=== PATIENT | male | born 2000 | race Native Hawaiian/Other Pacific Islander ===

== ENCOUNTER 2020-08-30 09:12 | Day surgery (SDC) | payer OTHER ==
[~2020-08-30] VITALS: Ht 175.3 cm; Wt 81.6 kg
[2020-08-30] MEDS ORDERED: ceFAZolin 1GM/50ML 100 ML IV ONE (09:42)
[2020-08-30] MEDS ORDERED: MIDAZOLAM HCL 2MG/2ML 2ml VIAL (1mg/ml) ONE (10:38)
[2020-08-30] MEDS ORDERED: fentaNYL CITRATE 100 MCG/2 ML VL ONE (10:38)
[2020-08-30] MEDS ORDERED: ONDANSETRON HCL 4 MG/2 ML VIAL ONE (10:38)
[2020-08-30] MEDS ORDERED: MEPERIDINE HCL (25 MG/ML) 1ML VIAL ONE (10:38)
[2020-08-30] MEDS ORDERED: PROPOFOL 10 MG/ML 20 ML IV ONE (10:38)
[2020-08-30] MEDS ORDERED: HYDROmorphone HCL 2 MG/ML VL IV PRN ×2 (11:15)
[2020-08-30] MEDS ORDERED: METOCLOPRAMIDE HCL 5MG/ml INJ 2ml VIAL IV PRN (11:15)
[2020-08-30] MEDS ORDERED: MORPHINE SULFATE 4 MG/ML SYR/VIAL IV PRN (11:15)
[2020-08-30] MEDS ORDERED: BUPIVACAINE W/ EPINEPH 0.5% MPF 30ML VIAL IJ ONE (11:34)
[2020-08-30] MEDS ORDERED: BUPIVACAINE 0.5% MPF INJ 30ML SDV IJ ONE (11:34)
[2020-08-30] MEDS ORDERED: EPINEPHrine HCL 1 MG/1 ML AMP ONE (11:38)
[2020-08-30 13:40] VITALS: BP 124/78
== END 2020-08-30 14:05 | disposition home or self-care (01) ==
LOC: SUR 09:12
PROVIDERS: ATTEND Orthopaedic Surgery Sports Medicine
DX: M23.261 Derangement of other lateral meniscus due to old tear or injury, right knee (principal); M94.261 Chondromalacia, right knee; E66.01 Morbid (severe) obesity due to excess calories; Z68.28 Body mass index [BMI] 28.0-28.9, adult; Z20.822 Contact with and (suspected) exposure to COVID-19; Z98.890 Other specified postprocedural states; Z79.899 Other long term (current) drug therapy
CPT/HCPCS: 29879; 29881; C1713; J0171; J0690; J2175; J2250; J2405; J2704; J3010; J3490; U0003